=== PATIENT | male | born 1970 | race Caucasian/White ===

== ENCOUNTER 2020-01-10 18:32 | Emergency (ER) | payer MEDICAID ==
[~2020-01-10] VITALS: Ht 152.4 cm; Wt 68.0 kg
[2020-01-10 18:42] VITALS: BP 139/64
--- NOTE | 2020-01-10 18:51 | NUR ---
49/M BIB SELF C/O FEVER,VITALE,COUGH X 1 WEEK.MED HX:DENIES.
--- NOTE | 2020-01-10 19:15 | NUR ---
RECIVED REPORT FROM MARTA MENDIETA. CONTINUATION OF CARE.
--- NOTE | 2020-01-10 19:17 | NUR ---
CALEB CHAVIRA ASSESSING PT IN TENT.
[2020-01-10 19:30] VITALS: BP 139/64
--- NOTE | 2020-01-10 19:30 | NUR ---
Patient discharged with v/s stable. Written and verbal after care instructions given and explained. Patient alert, oriented and verbalized understanding of instructions. Ambulatory with steady gait. All questions addressed prior to discharge. ID band removed. Patient advised to follow up with PMD. Rx of IBUPROFEN, AZITHROMYCIN, ACETOMINOPHEN, ROBITUSSIN given. Patient educated on indication of medication including possible reaction and side effects. Opportunity to ask questions provided and answered.
--- NOTE | 2020-01-10 19:30 | NUR ---
COVID SWAB COLLECTED. SWAB SENT TO LAB.
--- NOTE | 2020-01-11 16:30 | NUR ---
COVID RESULTS COLLECTED, POSITIVE RESULT. RESULT PLACED IN INFECTION CONTROL INBOX.
== END 2020-01-10 19:30 | disposition home or self-care (01) ==
LOC: MED 18:32
DX: U07.1 COVID-19 (principal); J18.9 Pneumonia, unspecified organism
CPT/HCPCS: 71045; 99284; J7030; U0003

== ENCOUNTER 2020-01-26 20:34 | Emergency (ER) | payer MEDICAID, SELFPAY ==
[~2020-01-26] VITALS: Ht 157.5 cm; Wt 68.5 kg
[2020-01-26 20:52] VITALS: BP 119/81
--- NOTE | 2020-01-26 20:52 | NUR ---
PT TRIAGED AND PLACED IN TENT FOR ALL PT CARE
--- NOTE | 2020-01-26 20:53 | NUR ---
49 YO M BIB SELF FOR NOTE TO GO BACK TO WORK POST + COVID TEST ON 01/10/20. PT IS NO ASYMPTOMIC DEFINED BY CDC. NKA NO MED HX NO RX
--- NOTE | 2020-01-26 21:00 | NUR ---
ERMD IN TENT EVALUATING PT
--- NOTE | 2020-01-26 21:05 | NUR ---
ORAL COVID SWAB COLLECTED IN TENT AND SENT TO LAB
[2020-01-26 21:19] VITALS: BP 119/81
--- NOTE | 2020-01-26 21:19 | NUR ---
Patient discharged with v/s stable. Written and verbal after care instructions given and explained. Patient verbalized understanding. Ambulatory with steady gait. All questions addressed prior to discharge. Advised to follow up with PMD.
== END 2020-01-26 21:19 | disposition home or self-care (01) ==
LOC: MED 20:34
DX: U07.1 COVID-19 (principal)
CPT/HCPCS: 99283; U0003

== ENCOUNTER 2020-02-07 22:25 | Emergency (ER) | payer MEDICAID, SELFPAY ==
[~2020-02-07] VITALS: Ht 160 cm; Wt 68.9 kg
[2020-02-07 22:32] VITALS: BP 128/75
--- NOTE | 2020-02-07 22:32 | NUR ---
PT SITTING IN TENT AWAITING MEDICAL EVALUATION. NO ACUTE DISTESS NOTED AT THIS TIME, VSS.
--- NOTE | 2020-02-07 23:17 | NUR ---
DR. ROGERS IN TENT FOR PT MEDICAL EVALUATION.
--- NOTE | 2020-02-07 23:20 | NUR ---
PT ASSESSMENT COMPLETED BY DR. ROGERS , NO NURSING INTERVENTION NEEDED AT THIS TIME.
[2020-02-07 23:42] VITALS: BP 128/75
== END 2020-02-07 23:42 | disposition home or self-care (01) ==
LOC: MED 22:25
DX: Z00.00 Encounter for general adult medical examination without abnormal findings (principal)
CPT/HCPCS: 99281

== ENCOUNTER 2020-05-26 17:08 | Emergency (ER) | payer MEDICAID, SELFPAY ==
[~2020-05-26] VITALS: Ht 170.2 cm; Wt 70.3 kg
[2020-05-26 17:22] VITALS: BP 135/100
[2020-05-26] MEDS: IBUPROFEN 800 MG TAB PO ONE (18:03)
[2020-05-26 19:03] VITALS: BP 135/100
--- NOTE | 2020-05-26 19:03 | NUR ---
NOVEL SWAB DONE. WALKED TO LAB
--- NOTE | 2020-05-26 19:04 | NUR ---
Patient discharged with v/s stable. Written and verbal after care instructions given and explained. Patient alert, oriented and verbalized understanding of instructions. Ambulatory with steady gait. All questions addressed prior to discharge. ID band removed. Patient advised to follow up with PMD. Rx of NAPROSYN, ALBUTEROL given. Patient educated on indication of medication including possible reaction and side effects. Opportunity to ask questions provided and answered.
== END 2020-05-26 19:03 | disposition home or self-care (01) ==
LOC: MED 17:08
DX: R07.89 Other chest pain (principal); Z20.828 Contact with and (suspected) exposure to other viral communicable diseases; R50.9 Fever, unspecified
CPT/HCPCS: 71045; 93005; 99285; U0003

== ENCOUNTER 2020-12-25 00:32 | Emergency (ER) | payer MEDICAID, SELFPAY ==
[~2020-12-25] VITALS: Ht 154.9 cm; Wt 72.6 kg
[2020-12-25 00:48] VITALS: BP 120/71
--- NOTE | 2020-12-25 00:55 | NUR ---
PATIENT TO THE BATHROOM FOR URINE COLLECTION
[2020-12-25 01:48] LABS: BASOPHILS % (AUTO) 0.1 % (0.0-2.0); EOSINOPHILS % (AUTO) 0.1 % (0.0-4.0); HEMATOCRIT 37.8 % (36-52); HEMOGLOBIN 12.9 g/dL (12.0-18.0); LYMPHOCYTES # (AUTO) 0.9 K/uL (2.0-11.5); LYMPHOCYTES % (AUTO) 7.9 % (20.5-51.1); MEAN CORPUSCULAR HEMOGLOBIN 33 pg (27-31); MEAN CORPUSCULAR HGB CONC 34 g/dL (33-37); MEAN CORPUSCULAR VOLUME 96.3 fL (80-94); MONOCYTES # (AUTO) 0.6 K/uL (0.8-1.0); MONOCYTES % (AUTO) 4.9 % (1.7-9.3); NEUTROPHILS # (AUTO) 10.2 K/uL (1.8-7.7); PLATELET COUNT (AUTO) 162 K/uL (140-450); RED BLOOD CELL COUNT(AUTO) 3.93 MIL/uL (4.20-6.10); WHITE BLOOD COUNT (AUTO) 11.7 K/uL (4.8-10.8)
[2020-12-25 01:55] LABS: ALBUMIN 3.5 g/dL (3.4-5.0); ANION GAP 11.3 (8-16); CARBON DIOXIDE 24.3 mmol/L (21-32); CREATININE 0.8 mg/dL (0.6-1.3); POTASSIUM 3.6 mmol/L (3.5-5.1); TOTAL BILIRUBIN 0.4 mg/dL (0.0-1.0)
[2020-12-25 02:00] LABS: APPEARANCE,URINE SL CLOUDY (CLEAR); BILIRUBIN,URINE NEGATIVE (NEGATIVE); BLOOD, URINE 2+ (NEGATIVE); COLOR,URINE YELLOW (YELLOW); LEUKOCYTE ESTERASE ,URINE 3+ (NEGATIVE); NITRITE, URINE POSITIVE (NEGATIVE); UGLUCOSE TRACE (NEGATIVE)
[2020-12-25 02:02] LABS: RBC,URINE 0-5 /HPF (0-5)
[2020-12-25] MEDS ORDERED: KETOROLAC 15 MG/ML VIAL IVP ONE (02:15)
[2020-12-25] MEDS ORDERED: NACL 0.9% 1,000 ML IV ONE (02:15)
--- NOTE | 2020-12-25 02:21 | NUR ---
PATIENT LAYING IN BED LOCKED INLOWEST POSITION, X1 SIDE RAIL UP. PATIENT IS CONNECTED TO MONITOR, VSS. BREATHING EVEN AND UNLABORED, NAD NOTED, WILL CONTINUE TO MONITOR
[2020-12-25] MEDS ORDERED: cefTRIAXone 1,000 MG VIAL ONE (02:26)
[2020-12-25] MEDS ORDERED: CEPH-588 PO (03:10)
[2020-12-25] MEDS ORDERED: ACETAMINOPHEN EXTRA STRENGTH 500 MG TAB PO ONE ×2 (03:20)
[2020-12-25 04:05] VITALS: BP 117/62
== END 2020-12-25 04:05 | disposition home or self-care (01) ==
LOC: MED 00:32
DX: N12 Tubulo-interstitial nephritis, not specified as acute or chronic (principal)
CPT/HCPCS: 36415; 80053; 81001; 83605; 85025; 87086; 96365; 96375; 99284; J0696; J1885; J7030